=== PATIENT | male | born 1950 | race Caucasian/White ===

== ENCOUNTER 2018-03-02 21:33 | Emergency (ER) | payer OTHER ==
--- OUTSIDE RECORDS SUMMARY | 2018-03-02 21:35 | XMS REPORT | Clinical Summary ---
:1950 Author Organization [facility] Address [address] [place] [address] Care Team Providers Name Role Phone Álvaro Sr MD Primary Care Provider Allergies No Known Allergies Current Medications Prescription Sig. Disp. Refills Start Date End Date Status lisinopril (PRINIVIL,ZESTRIL) 40 mg 12/14/2017 Active tablet metoprolol tartrate (LOPRESSOR) 100 mg 12/16/2017 Active tablet furosemide (LASIX) 40 mg tablet 12/14/2017 Active Active Problems Not on file Encounters Date Type Specialty Care Team Description 02/28/2018 Office Visit Oncology Claude Howell Malignant melanoma MD unspecified site (Primary Dx) after 03/01/2017 Family History Medical History Relation Name Comments Melanoma Brother Melanoma Mother Melanoma Sister Relation Name Status Comments Brother Mother Sister Social History Tobacco Use Types Packs/Day Years Used Date Never Smoker Alcohol Use Drinks/Week oz/Week Comments No Sex Assigned at Date Recorded Not on file Last Filed Vital Signs Vital Sign Reading Time Taken Blood Pressure 121/72 02/28/2018 2:41 PM CDT Pulse 58 02/28/2018 2:41 PM CDT Temperature 36.4 C (97.6 F) 02/28/2018 2:41 PM CDT Respiratory Rate - - Oxygen Saturation 94% 02/28/2018 2:41 PM CDT Inhaled Oxygen Concentration - - Weight 151 kg (333 lb) 02/28/2018 2:41 PM CDT Height 177.8 cm (5' 10") 02/28/2018 2:41 PM CDT Body Mass Index 47.78 02/28/2018 2:41 PM CDT Plan of Treatment Date Type Specialty Care Team Description 03/24/2018 [place] [address] [facility] [address] [place] [address] Health Maintenance Due Date Last Done Comments COLONOSCOPY 1998 SHINGRIX VACCINE (#1) 1998 ZOSTER VACCINE 2008 PNEUMOCOCCAL POLYSACCHARIDE VACCINE AGE 65 AND OVER 2013 PNEUMOCOCCAL-13 2013 INFLUENZA VACCINE 05/25/2018 Results PT and PTT (02/28/2018 4:04 PM) Component Value Ref Range PTT 32 22 - 34 sec Comment: This test has not been validated for monitoring unfractionated heparin therapy. For testing that is validated for this type of therapy, please refer to the Heparin Anti-Xa assay (test code 35825). For additional information, please refer to http://education.1234ENTER/faq/KXB077 (This link is being provided for informational/educational purposes only.) INR 1.2 (H) Comment: Reference Range 0.9-1.1 Moderate-intensity Warfarin Therapy 2.0-3.0 Higher-intensity Warfarin Therapy 3.0-4.0 Prothrombin time 12.6 (H) 9.0 - 11.5 sec Specimen Performing Laboratory [facility] CBC with platelet and differential (02/28/2018 4:04 PM) Component Value Ref Range WBC 13.3 (H) 3.8 - 10.8 Thousand/uL RBC 4.32 4.20 - 5.80 Million/uL HGB 10.6 (L) 13.2 - 17.1 g/dL HCT 34.0 (L) 38.5 - 50.0 % MCV 78.7 (L) 80.0 - 100.0 fL MCH 24.5 (L) 27.0 - 33.0 pg MCHC 31.2 (L) 32.0 - 36.0 g/dL RDW 15.5 (H) 11.0 - 15.0 % Platelet count 404 (H) 140 - 400 Thousand/uL MPV 10.3 7.5 - 12.5 fL Neutrophils, absolute 10,175 (H) 1,500 - 7,800 cells/uL Lymphocytes, absolute 1,809 850 - 3,900 cells/uL Monocytes, absolute 825 200 - 950 cells/uL Eosinophils, absolute 466 15 - 500 cells/uL Basophils, absolute 27 0 - 200 cells/uL Neutrophils 76.5 % Lymphocytes 13.6 % Monocytes 6.2 % Eosinophils 3.5 % Basophils + RC 0.2 % Specimen Performing Laboratory [facility] LDH (02/28/2018 4:04 PM) Component Value Ref Range LDH 325 (H) 120 - 250 U/L Specimen Performing Laboratory [facility] Comprehensive metabolic panel (02/28/2018 4:04 PM) Component Value Ref Range Glucose 110 (H) 65 - 99 mg/dL Comment: Fasting reference interval For someone without known diabetes, a glucose value between 100 and 125 mg/dL is consistent with prediabetes and should be confirmed with a follow-up test. BUN, whole blood 30 (H) 7 - 25 mg/dL Creatinine 1.08 0.70 - 1.25 mg/dL Comment: For patients >49 years of age, the reference limit for Creatinine is approximately 13% higher for people identified as -Italian. EGFR Non-Afr. Italian 70 > OR=60 mL/min/1.73m2 EGFR 81 > OR=60 mL/min/1.73m2 BUN/creatinine ratio 28 (H) 6 - 22 (calc) Sodium 140 135 - 146 mmol/L Potassium 4.5 3.5 - 5.3 mmol/L Chloride 105 98 - 110 mmol/L CO2 26 20 - 31 mmol/L Calcium 9.1 8.6 - 10.3 mg/dL Protein 6.7 6.1 - 8.1 g/dL Albumin, S 3.7 3.6 - 5.1 g/dL Globulin, total 3.0 1.9 - 3.7 g/dL (calc) Albumin/globulin ratio 1.2 1.0 - 2.5 (calc) Total bilirubin 0.3 0.2 - 1.2 mg/dL Alkaline phosphatase 85 40 - 115 U/L AST 13 10 - 35 U/L ALT 6 (L) 9 - 46 U/L Specimen Performing Laboratory [facility] after 03/01/2017 Insurance Payer Benefit Plan / Group Subscriber ID Type Phone Address [facility] xxxxxxxxx HMO Home: [facility] [address] [facility] [phone] [place] [id number]
--- NOTE | 2018-03-02 22:55 | EDPHYS ---
Physician Documentation [facility] Name: Vikram Hanley Age: 67 yrs Sex: Male : 1950 Arrival Date: 03/02/2018 Time: 21:37 Bed 7 Private MD: Álvaro Haider R ED Physician Billy Mata HPI: 03/02 23:03 This 67 yrs old Male presents to ER via Wheelchair with complaints of abscess jr8 toe. 23:03 The patient presents with an abscess of the right foot. Description: The affected area jr8 is small, well demarcated, draining, erythematous, swollen, tense, warm. Onset: The symptoms/episode began/occurred gradually, 2 day(s) ago. Possible cause(s): unknown. Associated signs and symptoms: The patient has no apparent associated signs or symptoms. Modifying factors: the symptoms are alleviated by nothing, the symptoms are aggravated by walking, pressure, squeezing the lesion and expressing the contents, touching. Severity of symptoms: At their worst the symptoms were mild, in the emergency department the symptoms are unchanged. The patient has not experienced similar symptoms in the past. The patient has not recently seen a physician. Patient stated that he noticed swelling and pustule to right 3rd toe. had squeezed it and a lot of exudate was expelled. Came to ED at that time for antibiotics . Historical: - Allergies: 22:00 No Known Allergies; ak1 - Home Meds: 22:00 metoprolol tartrate 100 mg Oral tab 1 tab once daily [Active]; lisinopril 20 mg oral ak1 tab 1 tab [Active]; tramadol 50 mg Oral tab 1 tab as needed [Active]; furosemide 40 mg Oral tab 1 tab once daily [Active]; - PMHx: 22:00 "bad Knees"; "fluid overload"-denies chf or copd; Arthritis; Cellulitis; Gout; ak1 Hypertension; limited mobility in L shoulder and ginger knees from arthritis and pain, uses walker/charir; pedal edema; melanoma cancer; - PSHx: 22:00 tumor removed from right side; ak1 - Immunization history:: Adult Immunizations unknown. - Social history:: Smoking status: Patient/guardian denies using tobacco. ROS: 23:03 Eyes: Negative for injury, pain, redness, and discharge, ENT: Negative for injury, jr8 pain, and discharge, Neck: Negative for injury, pain, and swelling, Cardiovascular: Negative for chest pain, palpitations, and edema, Respiratory: Negative for shortness of breath, cough, wheezing, and pleuritic chest pain, Abdomen/GI: Negative for abdominal pain, nausea, vomiting, diarrhea, and constipation, Back: Negative for injury and pain, MS/Extremity: Negative for injury and deformity, Neuro: Negative for headache, weakness, numbness, tingling, and seizure. 23:03 Skin: Positive for abscess, of the right foot. Exam: 23:03 Cardiovascular: Regular rate and rhythm with a normal S1 and S2. No gallops, murmurs, jr8 or rubs. Normal PMI, no JVD. No pulse deficits. Respiratory: Lungs have equal breath sounds bilaterally, clear to auscultation and percussion. No rales, rhonchi or wheezes noted. No increased work of breathing, no retractions or nasal flaring. MS/ Extremity: Pulses equal, no cyanosis. Neurovascular intact. Full, normal range of motion. Neuro: Awake and alert, GCS 15, oriented to person, place, time, and situation. Cranial nerves II-XII grossly intact. Motor strength 5/5 in all extremities. Sensory grossly intact. Cerebellar exam normal. Normal gait. 23:03 Skin: abscess, that is small, approximately 2 cm(s), of the right third toe, with drainage, that is bloody, that is purulent, with surrounding cellulitis, that is mild. Vital Signs: 22:00 BP 133 / 77; Pulse 71; Resp 20; Temp 98.4(TE); Pulse Ox 95% on R/A; Weight 149.69 kg ak1 (R); Height 5 ft. 10 in. (177.80 cm) (R); Pain 0/10; 23:09 BP 122 / 50; Pulse 64; Resp 19 S; Pulse Ox 100% on R/A; jd3 22:00 Body Mass Index 47.35 (149.69 kg, 177.80 cm) ak1 22:00 increased pain with palaption 10/10 ak1 MDM: 22:28 Patient medically screened. jr8 22:53 Data reviewed: vital signs, nurses notes, and as a result, I will discharge patient. jr8 Data interpreted: Pulse oximetry: on room air is 95 %. Interpretation: normal. Counseling: I had a detailed discussion with the patient and/or guardian regarding: the historical points, exam findings, and any diagnostic results supporting the discharge/admit diagnosis, the need for outpatient follow up, a family practitioner, to return to the emergency department if symptoms worsen or persist or if there are any questions or concerns that arise at home. 03/02 23:03 Order name: Wound Culture jr8 Administered Medications: 23:06 Drug: Clindamycin 300 mg Route: PO; jd3 23:06 Follow up: Response: Medication administered at discharge. jd3 23:06 Drug: Bactrim (160 mg-800 mg (DS) 1 tablet Route: PO; jd3 23:07 Follow up: Response: Medication administered at discharge. jd3 Disposition: 03/03 00:57 Co-signature as Attending Physician, Billy Mata MD. rn Disposition: 03/02/18 22:54 Discharged to Home. Impression: Cutaneous abscess of foot. - Condition is Stable. - Discharge Instructions: Abscess. - Prescriptions for Clindamycin HCl 300 mg Oral Capsule - take 1 capsule by ORAL route every 6 hours for 10 days; 40 capsule. Bactrim DS 800- 160 mg Oral Tablet - take 1 tablet by ORAL route every 12 hours for 10 days; 20 tablet. - Medication Reconciliation Form, Thank You Letter, Antibiotic Education, Prescription Opioid Use form. - Follow up: Álvaro Haider MD; When: 1 - 2 days; Reason: Recheck today's complaints, Continuance of care, Re-evaluation by your physician. - Problem is new. - Symptoms have improved. Signatures: Dispatcher [employer] EDMS Billy Mata MD MD rn Roszak, Josh, PA PA jr8 Thalia Lindsey RN RN ak1 Alejandro Lea RN RN jd3 Corrections: (The following items were deleted from the chart) 03/02 23:10 22:54 03/02/2018 22:54 Discharged to Home. Impression: Cutaneous abscess of foot. jd3 Condition is Stable. Forms are Medication Reconciliation Form, Thank You Letter, Antibiotic Education, Prescription Opioid Use. Follow up: Álvaro Haider; When: 1 - 2 days; Reason: Recheck today's complaints, Continuance of care, Re-evaluation by your physician. Problem is new. Symptoms have improved. jr8
--- NOTE | 2018-03-02 22:55 | ER ---
Nurse's Notes [facility] Name: Vikram Hanley Age: 67 yrs Sex: Male : 1950 Arrival Date: 03/02/2018 Time: 21:37 Bed 7 Private MD: Álvaro Haider R Diagnosis: Cutaneous abscess of foot Presentation: 03/02 21:44 Presenting complaint: Patient states: right middle toe redness and swelling with ak1 purulent drainage since Wednesday. Transition of care: patient was not received from another setting of care. Complicating Factors: There are no complicating factors for this patient. Onset of symptoms was February 26, 2018. Initial Sepsis Screen: Does the patient meet any 2 criteria? No. Patient's initial sepsis screen is negative. Does the patient have a suspected source of infection? No. Patient's initial sepsis screen is negative. Care prior to arrival: None. 21:44 Method Of Arrival: Wheelchair ak1 21:44 Acuity: AVEL 3 ak1 Triage Assessment: 22:00 General: Appears in no apparent distress. Behavior is calm, cooperative. Pain: ak1 Complains of pain in right foot. EENT: No signs and/or symptoms were reported regarding the EENT system. Neuro: No deficits noted. Cardiovascular: No deficits noted. Respiratory: No deficits noted. GI: No signs and/or symptoms were reported involving the gastrointestinal system. : No signs and/or symptoms were reported regarding the genitourinary system. Derm: Skin has blisters on right middle toe Skin is purulent drainage Skin is red, Skin temperature is hot. Musculoskeletal: No signs and/or symptoms reported regarding the musculoskeletal system. Injury Description: no injury, no laceration. Historical: - Allergies: 22:00 No Known Allergies; ak1 - Home Meds: 22:00 metoprolol tartrate 100 mg Oral tab 1 tab once daily [Active]; lisinopril 20 mg oral ak1 tab 1 tab [Active]; tramadol 50 mg Oral tab 1 tab as needed [Active]; furosemide 40 mg Oral tab 1 tab once daily [Active]; - PMHx: 22:00 "bad Knees"; "fluid overload"-denies chf or copd; Arthritis; Cellulitis; Gout; ak1 Hypertension; limited mobility in L shoulder and ginger knees from arthritis and pain, uses walker/charir; pedal edema; melanoma cancer; - PSHx: 22:00 tumor removed from right side; ak1 - Immunization history:: Adult Immunizations unknown. - Social history:: Smoking status: Patient/guardian denies using tobacco. Screenin:02 Abuse screen: Denies threats or abuse. Denies injuries from another. Nutritional ak1 screening: No deficits noted. Tuberculosis screening: No symptoms or risk factors identified. Fall Risk None identified. Assessment: 22:42 General: Appears in no apparent distress. uncomfortable, Behavior is calm, cooperative, jd3 appropriate for age. Pain: Complains of pain in Right third toenail Pain currently is 1 out of 10 on a pain scale. Quality of pain is described as aching, pressure. Neuro: Level of Consciousness is awake, alert, obeys commands, Oriented to person, place, time, situation. Cardiovascular: Heart tones S1 S2 present Capillary refill < 3 seconds Patient's skin is warm and dry. Respiratory: Airway is patent Respiratory effort is even, unlabored, Respiratory pattern is regular, symmetrical, Breath sounds are clear bilaterally. GI: Abdomen is round obese, Patient currently denies nausea, vomiting. : No signs and/or symptoms were reported regarding the genitourinary system. EENT: No signs and/or symptoms were reported regarding the EENT system. Derm: Skin is intact, Skin is dry, Skin is normal, Skin temperature is warm Wound noted Right third toenail Wound is red, swollen, and warm to touch. about 0.5cm in circumference. Musculoskeletal: Circulation, motion, and sensation intact. Range of motion: intact in all extremities, Swelling present in right foot, left foot, right leg and left leg. Injury Description: Laceration is superficial, 0.5 to 2.5 cm long, not bleeding. 23:08 Reassessment: Patient appears in no apparent distress at this time. Patient and/or jd3 family updated on plan of care and expected duration. Pain level reassessed. Patient is alert, oriented x 3, equal unlabored respirations, skin warm/dry/pink. pt reported understanding of discharge instructions, pt assisted to front of ER with wheelchair. Vital Signs: 22:00 BP 133 / 77; Pulse 71; Resp 20; Temp 98.4(TE); Pulse Ox 95% on R/A; Weight 149.69 kg ak1 (R); Height 5 ft. 10 in. (177.80 cm) (R); Pain 0/10; 23:09 BP 122 / 50; Pulse 64; Resp 19 S; Pulse Ox 100% on R/A; jd3 22:00 Body Mass Index 47.35 (149.69 kg, 177.80 cm) ak1 22:00 increased pain with palaption 10/10 ak1 ED Course: 21:37 Patient arrived in ED. al2 21:38 Álvaro Haider MD is Private Physician. al2 21:58 Triage completed. ak1 22:00 Arm band placed on Patient placed in waiting room, Patient notified of wait time. ak1 22:02 Patient has correct armband on for positive identification. ak1 22:28 Ford Mosquera PA is PHCP. jr8 22:28 Billy Mata MD is Attending Physician. jr8 22:41 Alejandro Lea RN is Primary Nurse. jd3 22:54 Álvaro Haider MD is Referral Physician. jr8 23:07 No provider procedures requiring assistance completed. Patient did not have IV access jd3 during this emergency room visit. Administered Medications: 23:06 Drug: Clindamycin 300 mg Route: PO; jd3 23:06 Follow up: Response: Medication administered at discharge. jd3 23:06 Drug: Bactrim (160 mg-800 mg (DS) 1 tablet Route: PO; jd3 23:07 Follow up: Response: Medication administered at discharge. jd3 Outcome: 22:54 Discharge ordered by . jr8 23:07 Discharged to home via wheelchair, with family. jd3 23:07 Condition: stable 23:07 Discharge instructions given to patient, family, Instructed on discharge instructions, follow up and referral plans. medication usage, Demonstrated understanding of instructions, follow-up care, medications, Prescriptions given X 2. 23:10 Patient left the ED. jd3 Signatures: Ford Mosquera PA PA jr8 Thalia Lindsey RN RN ak1 Alejandro Lea RN RN Annette Mack al2
[2018-03-02] MEDS ORDERED: SMZ./TMP. 800/160 MG TABLET ONE (23:02)
[2018-03-02] MEDS ORDERED: CLINDAMYCIN HCL 150 MG CAP ONE (23:02)
[2018-03-02 23:18] VITALS: TEMP 98.4
[2018-03-02 23:21] VITALS: BP 122/50; O2SAT 100
== END 2018-03-02 23:10 | disposition home or self-care (01) ==
LOC: ER 21:33
DX: L02.611 Cutaneous abscess of right foot (principal); I10 Essential (primary) hypertension
CPT/HCPCS: 87070; 87205; 99283